=== PATIENT | male | born 1970 | race Two or more races ===

== ENCOUNTER 2021-03-13 09:01 | Emergency (ER) | payer OTHER ==
[~2021-03-13] VITALS: Ht 167.6 cm; Wt 79.3 kg
[2021-03-13 09:12] VITALS: BP 142/99
[2021-03-13] MEDS ORDERED: LIDOCAINE 2%/EPI 1:100,000 20 ML VIAL. ONE (09:26)
[2021-03-13] MEDS ORDERED: LIDOCAINE 1% Multi-Dose 20 ML VIAL. IJ ONE (09:30)
[2021-03-13] MEDS ORDERED: LIDOCAINE 1%/EPI 1:100,000 20 ML VIAL. IJ ONE (09:30)
[2021-03-13] MEDS ORDERED: LIDOCAINE 2%/EPI 1:100,000 20 ML VIAL. IJ ONE (10:00)
--- NOTE | 2021-03-13 10:21 | PHYS DOC ---
Past History Past Medical History: No Pertinent History (MAURISIO PATIÑO APRN) Past Surgical History: Other Additional Past Surgical Histo: neck surgery (MAURISIO PATIÑO APRN) Smoking: Non-smoker Alcohol Use: None Drug Use: None (MAURISIO PATIÑO APRN) General Adult EDM: Chief Complaint: LACERATION/AVULSION HPI: HPI: Patient is a 50-year-old male that presents today with multiple lacerations. Patient is in the presence of the federal staff air tactical officer, patient was brought in with multiple lacerations. Patient does have a tourniquet on his right upper arm that was placed by the medical staff at the long term at 755 ac cording to the staff air tactical officer that are at the bedside. According to the patient patient said he cut his arm and bilateral hands on the sink in his room, according to the staff air tactical officer they found him bleeding in his cell, they brought him to medical and he was bleeding profusely from his right arm, at which time they placed a tourniquet on that arm and presented to the emergency department for further management. Patient is unable to tell us when his last tetanus shot was. (MAURISIO PATIÑO APRN) Review of Systems: Review of Systems: Constitutional: Denies fever or chills Eyes: Denies change in visual acuity HENT: Denies nasal congestion or sore throat Respiratory: Denies cough or shortness of breath Cardiovascular: Denies chest pain or edema GI: Denies abdominal pain, nausea, vomiting, bloody stools or diarrhea : Denies dysuria Musculoskeletal: Denies back pain or joint pain Integument: Multiple lacerations on right arm and left hand Neurologic: Denies headache, focal weakness or sensory changes Endocrine: Denies polyuria or polydipsia Lymphatic: Denies swollen glands Psychiatric: Denies depression or anxiety (MAURISIO PATIÑO APRN) Current Medications: Current Meds: Current Medications Medications (Trade) Dose Ordered Sig/Shelia Start Time Stop Time Status Last Admin Dose Admin Lidocaine HCl 20 ml 1X ONCE 03/13/21 09:30 03/13/21 09:31 DC 03/13/21 09:30 20 ML Lidocaine/ Epinephrine (Xylocaine 1%-Epi 1:100,000) 20 ml 1X ONCE 03/13/21 09:30 03/13/21 09:31 UNV Lidocaine/ Epinephrine (Xylocaine 2%-Epi 1:100,000) 20 ml STK-MED ONCE 03/13/21 09:26 03/13/21 09:26 DC (MAURISIO PATIÑO APRN) Allergies: Allergies: Allergies Coded Allergies Type Severity Reaction Last Updated Verified No Known Drug Allergies 03/13/21 No (MAURISIO PATIÑO APRN) Physical Exam: PE: Constitutional: Well developed, well nourished, no acute distress, non-toxic appearance. [] HENT: Normocephalic, atraumatic, bilateral external ears normal, oropharynx moist, no oral exudates, nose normal. [] Eyes: PERRLA, EOMI, conjunctiva normal, no discharge. [] Neck: Normal range of motion, no tenderness, supple, no stridor. [] Cardiovascular:Heart rate regular rhythm, no murmur [] Lungs & Thorax: Bilateral breath sounds clear to auscultation [] Abdomen: Bowel sounds normal, soft, no tenderness, no masses, no pulsatile masses. [] Skin/extermities: Patient has 3 lacerations noted on his right forearm area 1 on the ventral aspect of the forearm measuring 13 cm in length with exposed tendon and muscle noted, no active bleeding noted, laceration also noted on the ventral aspect of the wrist area approximately 2-1/2 cm in length also noted on the medial aspect of the forearm there is another laceration measuring 1-1/2 cm, patient also has abrasions noted on the right thumb and on the palm of the right hand. Patient is able to flex and extend hand his neurovascular is intact distal to all injuries. Laceration also noted on left hand on the palmar medial aspect of the palm approximately 2 1/2 cm in a semicircle shape no active bleeding noted, patient also has an avulsion to the 4th finger distal tip. Left hand neurovascular intact distal to the injury. [] Back: No tenderness, no CVA tenderness. [] Neurologic: Alert and oriented X 3, normal motor function, normal sensory function, no focal deficits noted. [] Psychologic: Affect normal, judgement normal, mood normal. [] (MAURISIO PATIÑO APRN) Current Patient Data: Vital Signs: Vital Signs Date Time Temp Pulse Resp B/P (MAP) Pulse Ox O2 Delivery O2 Flow Rate FiO2 03/13/21 09:12 98.0 84 16 142/99 (113) 100 Room Air (MAURISIO PATIÑO APRN) EKG: EKG: [] (MAURISIO PATIÑO APRN) Radiology/Procedures: Radiology/Procedures: laceration repair 11 09 patient was placed in a supine position, right forearm laceration measuring 13 cm in length was anesthetized with approximately 10 mL of lidocaine without epinephrine after proper anesthetization was obtained 16 interrupted sutures were placed using 4-0 Ethilon. Laceration noted at the wrist was anesthetized with approximately 2 mL of lidocaine with epinephrine for interrupted sutures placed using 4-0 Ethilon, 1 cm laceration noted on the right forearm area was anesthetized with 1 mL of lidocaine with epinephrine 2 interrupted sutures using 4-0 Ethilon was used to close that area. All wounds were irrigated using normal saline the largest one was irrigated with gera roximately 130 mL of normal saline the others between 10 and 20 mL of normal saline were used to irrigate. Right hand following suture repair neurologically was intact patient was able to flex and extend fingers and cap refill was less than 2 seconds with sensory intact. Left palmar side hand laceration 2.5 cm was anesthetized using 4-1/2 mL of lidocaine with epinephrine, after proper anesthetizing 4 interrupted sutures using 4-0 Ethilon was used after irrigating with 40 mL of normal saline. 4th finger avulsion was cleansed with Betadine solution and was dressed by the nursing staff. All wounds were dressed by the nursing staff using nonadherent dressings.[] (MAURISIO PATIÑO APRN) Heart Score: C/O Chest Pain: N/A Risk Factors: Risk Factors: DM, Current or recent (<one month) smoker, HTN, HLP, family history of CAD, obesity. Risk Scores: Score 0 - 3: 2.5% MACE over next 6 weeks - Discharge Home Score 4 - 6: 20.3% MACE over next 6 weeks - Admit for Clinical Observation Score 7 - 10: 72.7% MACE over next 6 weeks - Early Invasive Strategies (MAURISIO PATIÑO APRN) Course & Med Decision Making: Course & Med Decision Making Pertinent Labs and Imaging studies reviewed. (See chart for details) 905 tourniquet was removed at this time laceration was assessed, Dr. Antonio at bedside, neurovascular intact distal to the injury exposed tendon and ligaments noted. Dressing was applied by nursing staff, tetanus was updated by nursing staff, correctional facility staff was given a prescription for antibiotics and discharge instructions with the instructions to have the sutures removed in 10 days. (MAURISIO PATIÑO APRN) Course & Med Decision Making I was the Attending physician on the above date of service of this patient. This patient was evaluated, examined, treated, and dispositioned from the emergency department by the mid-level practitioner. I saw patient and repeated aspects of history and physical exam. I reviewed before and after appearance of patient after suture repair with intact motor or sensory neuro function to bilateral upper extremities. I agreed to disposition to update tetanus and prescribe antibiotics Electronically signed, Josafat Schultz DO (JOSAFAT SCHULTZ DO) Gertrude Disclaimer: Gertrude Disclaimer: This electronic medical record was generated, in whole or in part, using a voice recognition dictation system. (MAURISIO PATIÑO APRN) Departure Departure: Impression: Primary Impression: Laceration of right forearm without complication Qualified Codes: S51.811A - Laceration without foreign body of right forearm, initial encounter Additional Impressions: Laceration of left hand Qualified Codes: S61.412A - Laceration without foreign body of left hand, initial encounter Avulsion of fingernail of left hand Disposition: HOME / SELF CARE / HOMELESS Condition: STABLE Referrals: PCP,NO (PCP) Patient Instructions: Laceration Care, Adult, Nail Avulsion Injury Additional Instructions: Keep wound clean and dry Cleanse wound twice daily with mild cleansing soap and water watch for any signs and symptoms of infection Keflex 500 mg take 1 tablet 4 times daily for 10 full days Suture removal in 10 days Scripts Cephalexin (KEFLEX) 500 Mg Capsule 1 CAP PO QID for laceration, #40 CAP Prov: MAURISIO PATIÑO APRN 03/13/21 MAURISIO PATIÑO APRN Mar 13, 2021 10:20 JOSAFAT SCHULTZ DO Mar 15, 2021 19:57
[2021-03-13] MEDS ORDERED: DIPHTH,PERTUSS(ACELL),TET TOX 0.5 ML DISP.SYRIN. VAX IM ONE (10:30)
[2021-03-13] MEDS ORDERED: GELATIN SPONGE SIZE 12-7MM SPONGE. TP ONE (10:30)
[2021-03-13] MEDS ORDERED: CEPH500C PO (10:41)
[2021-03-13] MEDS ORDERED: BACITRACIN ZINC TOPICAL OINT PACKET. TP ONE ×2 (10:45→10:49)
== END 2021-03-13 11:14 | disposition home or self-care (01) ==
LOC: EEVIPCON 09:01 → ER 09:01
DX: S51.811A Laceration without foreign body of right forearm, initial encounter (principal); S61.412A Laceration without foreign body of left hand, initial encounter; Y28.8XXA Contact with other sharp object, undetermined intent, initial encounter; Y93.89 Activity, other specified; Y92.89 Other specified places as the place of occurrence of the external cause; Y99.8 Other external cause status
CPT/HCPCS: 90471; 90715; 99283